=== PATIENT | male | born 1980 | race African-American/Black ===

== ENCOUNTER 2020-12-20 23:10 | Emergency (ER) | payer OTHER ==
[~2020-12-20] VITALS: Ht 177.8 cm; Wt 86.2 kg
[2020-12-20 23:17] VITALS: BP 153/78
[2020-12-21 01:22] LABS: BASOPHILS # (AUTO) 0.1 K/uL (0.00-0.22); BASOPHILS % (AUTO) 0.7 % (0.0-2.0); EOSINOPHILS # (AUTO) 0.2 K/uL (0-0.4); EOSINOPHILS % (AUTO) 2.2 % (0.0-4.0); HEMATOCRIT 41.3 % (36-52); LYMPHOCYTES # (AUTO) 2.5 K/uL (2.0-11.5); LYMPHOCYTES % (AUTO) 28.1 % (20.5-51.1); MEAN CORPUSCULAR HEMOGLOBIN 29 pg (27-31); MEAN CORPUSCULAR HGB CONC 34 g/dL (33-37); MEAN CORPUSCULAR VOLUME 85.2 fL (80-94); MONOCYTES # (AUTO) 0.8 K/uL (0.8-1.0); MONOCYTES % (AUTO) 9.4 % (1.7-9.3); NEUTROPHILS # (AUTO) 5.3 K/uL (1.8-7.7); NEUTROPHILS % (AUTO) 59.6 % (42.2-75.2); PLATELET COUNT (AUTO) 218 K/uL (140-450); RED BLOOD CELL COUNT(AUTO) 4.84 MIL/uL (4.20-6.10); RED CELL DISTRIBUTION WIDTH 14.4 % (11.6-13.7); WHITE BLOOD COUNT (AUTO) 8.9 K/uL (4.8-10.8)
[2020-12-21 01:36] LABS: ANION GAP 7.4 (8-16); CREATININE 1.4 mg/dL (0.6-1.3); POTASSIUM 4.4 mmol/L (3.5-5.1)
[2020-12-21] MEDS ORDERED: NAPR-1003 PO (03:12)
[2020-12-21 03:24] VITALS: BP 134/94
== END 2020-12-21 03:24 | disposition home or self-care (01) ==
LOC: MED 23:10
DX: R07.89 Other chest pain (principal); M79.89 Other specified soft tissue disorders; Z79.899 Other long term (current) drug therapy
CPT/HCPCS: 36415; 71045; 80048; 84484; 85025; 93005; 93971; 99285

== ENCOUNTER 2021-03-01 19:58 | Emergency (ER) | payer OTHER ==
[~2021-03-01] VITALS: Ht 177.8 cm; Wt 94.3 kg
[~2021-03-01 19:58] MED LIST: NAPR-1003 PO
[2021-03-01 20:49] VITALS: BP 119/72
--- NOTE | 2021-03-01 22:13 | NUR ---
Patient called for labs and chest x-ray. No response.
--- NOTE | 2021-03-01 22:27 | NUR ---
Patient not in lobby; no response.
--- NOTE | 2021-03-01 22:59 | NUR ---
PATIENT LEFT WITHOUT BEING SEEN BY DR. Pozo. NO FURTHER CARE PROVIDED FOR PATIENT.
--- NOTE | 2021-03-01 22:59 | NUR ---
Patient not in lobby at this time; no response.
== END 2021-03-01 22:59 | disposition left against medical advice (07) ==
LOC: MED 19:58
DX: R07.9 Chest pain, unspecified (principal); R42 Dizziness and giddiness
CPT/HCPCS: 93005; 99283

== ENCOUNTER 2021-10-31 15:35 | Emergency (ER) | payer OTHER ==
[~2021-10-31] VITALS: Ht 177.8 cm; Wt 93.9 kg
[2021-10-31 15:45] VITALS: BP 112/72
--- NOTE | 2021-10-31 15:51 | NUR ---
PT AMBULATED TO BED 07.
--- NOTE | 2021-10-31 15:58 | NUR ---
AUDI HORVATH EVALUATING PATIENT AT BEDSIDE.
--- NOTE | 2021-10-31 16:10 | NUR ---
URINE SPECIMEN WALKED OVER TO LAB.
--- NOTE | 2021-10-31 16:40 | NUR ---
41/M BIB SELF WITH C/O LEFT SIDED FLANK PAIN WITH URINARY URGENCY, DRIBBLING AND RETENTION X2 DAYS. PATIENT DENIES USING MEDICATION FOR PAIN, DENIES FEVERS, COUGH, N/V/D.
[2021-10-31] MEDS ORDERED: NAPR-54 PO (16:50)
--- NOTE | 2021-10-31 17:20 | NUR ---
LAB AT PATIENT BEDSIDE
[2021-10-31 17:36] VITALS: BP 112/72
--- NOTE | 2021-10-31 17:36 | NUR ---
Patient discharged with v/s stable. Written and verbal after care instructions ABOUT MEDICAL SCREENING EXAM given and explained. Patient alert, oriented and verbalized understanding of instructions. Ambulatory with steady gait. All questions addressed prior to discharge. ID band removed. Patient advised to follow up with PMD. Rx of NAPROSYN given. Patient educated on indication of medication including possible reaction and side effects. Opportunity to ask questions provided and answered.
[2021-11-02 09:06] LABS: HEPATITIS B SURFACE ANTIGEN Negative (Negative)
== END 2021-10-31 17:36 | disposition home or self-care (01) ==
LOC: MED 15:35
DX: R35.0 Frequency of micturition (principal); M54.59 Other low back pain; Z11.3 Encounter for screening for infections with a predominantly sexual mode of transmission
CPT/HCPCS: 36415; 81002; 86592; 86803; 87340; 87491; 87529; 99283